=== PATIENT | female | born 1990 | race African-American/Black ===

== ENCOUNTER 2017-03-27 07:13 | Emergency (ER) | payer MEDICAID ==
[~2017-03-27] VITALS: Ht 162.6 cm; Wt 64.0 kg
[2017-03-27] MEDS ORDERED: ONDANSETRON HCL 4MG/2ML VIAL IV STA (07:25)
[2017-03-27] MEDS ORDERED: SODIUM CHLORIDE 0.9% 1,000 ML IV ONE ×2 (07:25→09:15)
[2017-03-27] MEDS ORDERED: FAMOTIDINE 20MG/2ML VIAL IV STA (07:25)
[2017-03-27] MEDS ORDERED: KETOROLAC 30MG/ML VIAL IV ONE (07:45)
[2017-03-27 07:46] LABS: BASOPHILS % 0.9 % (0.0-2.0); EOSINOPHILS % 0.5 % (0.0-5.0); HEMOGLOBIN. 13.9 g/dL (12.0-16.0); MEAN CORPUSCULAR HEMOGLOBIN 31.8 pg (28.0-32.0); MEAN CORPUSCULAR HGB CONC 33.8 g/dL (31.0-37.0); MEAN CORPUSCULAR VOLUME 93.9 fL (81.0-99.0); MEAN PLATELET VOLUME 8.4 fl (7.4-10.4); MONOCYTES % 4.5 % (2.0-8.0); NEUTROPHILS % 67.1 % (40.0-76.0); PLATELET 226 x1000/uL (130-400); RED BLOOD CELL COUNT 4.36 mill/uL (4.2-5.4); RED CELL DISTRIBUTION WIDTH 12.9 % (11.6-14.6); WHITE BLOOD COUNT 7.1 x1000/uL (4.5-11.0)
[2017-03-27 07:49] LABS: CHLORIDE 103 mEq/L (98-107); INDEX HEMOLYSI 1 (1-3); INDEX ICTERIC 1 (1-4); INDEX LIPEMIC 1 (1-3)
[2017-03-27 07:57] LABS: ALANINE AMINOTRANSFERASE 17 IU/L (13-61); ALBUMIN 4.1 g/dL (3.4-5.0); ANION GAP 18; CALCIUM 9.3 mg/dL (8.5-10.1); CARBON DIOXIDE 22 mEq/L (21-32); LIPASE 103 IU/L (73-393); UREA NITROGEN BLOOD 14 mg/dL (7-21); eGFR > 60 mL/min (>60)
[2017-03-27] MEDS ORDERED: KETOROLAC 30MG/ML VIAL ONE (08:13)
[2017-03-27] MEDS ORDERED: METOCLOPRAMIDE HCL 10MG/2ML VIAL IV ONE (10:15)
[2017-03-27 10:30] LABS: CLARITY URINE CLOUDY (CLEAR); COLOR URINE YELLOW (YELLOW); GLUCOSE URINE NEGATIVE (NEGATIVE); KETONES URINE 4+ (NEGATIVE); LEUKOCYTE ESTERASE URINE TRACE (NEGATIVE); NITRITE URINE NEGATIVE (NEGATIVE); OCCULT BLOOD URINE 3+ (NEGATIVE); PH URINE >=9.0 (4.5-8.0); PROTEIN URINE 1+ (NEGATIVE); SPECIFIC GRAVITY URINE 1.031 (1.005-1.030)
[2017-03-27] MEDS ORDERED: METOCLOPRAMIDE HCL 10MG/2ML VIAL ONE (10:40)
[2017-03-27 10:41] LABS: BACTERIA URINE 2+; MUCUS URINE TRACE /lpf (< = 2+); SQUAMOUS EPITHELIAL CELL URINE 1+ /lpf (RARE/1+)
[2017-03-27] MEDS ORDERED: MAGNESIUM/ALUMINUM HYDROXIDE/SIMETHICONE 30ML UDC PO STA ×2 (10:49→12:20)
[2017-03-27] MEDS ORDERED: VISCOUS LIDOCAINE 2% 15 ML UDC PO STA ×2 (10:49→12:20)
[2017-03-27 10:58] LABS: *AMPHETAMINES SCREEN URINE NEGATIVE (NEGATIVE); *BARBITURATES SCREEN URINE NEGATIVE (NEGATIVE); *BENZODIAZEPINES SCREEN URINE NEGATIVE (NEGATIVE); *COCAINE SCREEN URINE NEGATIVE (NEGATIVE); ECSTASY MDMA SCREEN URINE NEGATIVE (NEGATIVE); METHADONE URINE SCREEN NEGATIVE (NEGATIVE); OPIATES URINE SCREEN NEGATIVE (NEGATIVE); PHENCYCLIDINE URINE SCREEN NEGATIVE (NEGATIVE)
[2017-03-27 11:03] LABS: CANNABINOID URINE SCREEN PRESUMTIVE POSITIVE (NEGATIVE)
[2017-03-27 12:22] VITALS: BP 118/60
== END 2017-03-27 13:17 | disposition home or self-care (01) ==
LOC: ER 07:52
DX: K52.9 Noninfective gastroenteritis and colitis, unspecified (principal); R10.13 Epigastric pain
CPT/HCPCS: 36415; 80053; 80305; 81001; 83690; 85025; 93005; 96361; 96374; 96375; 99285; J1885; J2405; J2765; J3490; J7030